=== PATIENT | female | born 1965 | race Caucasian/White ===

== ENCOUNTER → 2019-02-04 | Outpatient (CLI) | payer OTHER ==
--- NOTE | 2019-02-04 12:58 | US ---
EXAMINATION TYPE: US thyroid st tissue head/neck DATE OF EXAM: 02/04/2019 COMPARISON: NONE CLINICAL HISTORY: R22.1 Mass of neck Right submandibular mass x 2 month. Patient states this area is tender. She had a recent tooth pulle d on right. Complex vascular submandibular mass seen on right measuring 3.2 x 1.6 x 3.2cm. IMPRESSION: Complex submandibular mass on the right measuring 3.2 cm. Differential diagnosis include s abscess and neoplasm.
== END | disposition home or self-care (01) ==
LOC: RADUSMAIN 12:10
PROVIDERS: ATTEND Family Medicine
DX: R22.1 Localized swelling, mass and lump, neck (principal)
CPT/HCPCS: 76536

== ENCOUNTER → 2019-02-25 | Outpatient (CLI) | payer OTHER ==
--- NOTE | 2019-02-25 22:30 | CT ---
EXAMINATION TYPE: CT brain w con, CT soft tissue neck w con DATE OF EXAM: 02/25/2019 COMPARISON: Neck ultrasound February 04, 2019. HISTORY: swelling/mass to right side of neck CT DLP: 1126.5 (accession [id number]), 356.5 (accession [id number]) mGycm Automated exposure control for dose reduction was used. CONTRAST: CT scan of the head and neck are performed with IV Contrast, patient injected with 100 mL of Isovue 3 00. FINDINGS: BRAIN: There is no abnormal enhancing mass or midline shift identified. The ventricles and sulci are within normal limits in size. Coppola-white matter differentiation is maintained. The globes are intact and th e visualized sinuses are clear. NECK: Airway: No gross abnormality seen. Parotid/submandibular glands: Right submandibular gland shows central 3 mm sialolith. There is a lar zaid sialolith measuring 1.8 cm long axis axial image 44. Dilated duct is present. No surrounding infl ammatory change or enlargement noted. Left submandibular gland felt within normal limits. Parotid glands felt symmetric and unremarkable. Carotid/Vascular Structures: No significant plaque or stenosis. Osseous Structures: Reversal of normal cervical curvature with moderate spurring and disc space narro wing C4-C5 and C5-C6 levels. Other: No suspicious greater than 1 cm adenopathy. IMPRESSION: A 1.8 cm irregular calcification is believed to be along proximal portion of the drainin g right submandibular gland duct felt to reflect large sialolith causing obstruction of the duct. Sma ller sialolith within the submandibular gland noted currently. No acute inflammatory change identifie d on current study. Advise ENT referral.
== END | disposition home or self-care (01) ==
LOC: RADCTMAIN 17:13
PROVIDERS: ATTEND Family Medicine
DX: K11.5 Sialolithiasis (principal)
CPT/HCPCS: 70491; 70460; Q9967